=== PATIENT | male | born 1990 | race Caucasian/White ===

== ENCOUNTER 2024-05-05 10:46 | Emergency (ER) | payer SELFPAY ==
[~2024-05-05] VITALS: Ht 167.6 cm; Wt 78.0 kg
[2024-05-05 10:53] VITALS: BP 126/61; PULSE 75; RESP 16; TEMP 98; O2SAT 98
[2024-05-05] MEDS ORDERED: IBUP-2029 MT (11:53)
== END 2024-05-05 12:40 | disposition home or self-care (01) ==
LOC: ER 10:46
DX: S52.592A Other fractures of lower end of left radius, initial encounter for closed fracture (principal); S52.612A Displaced fracture of left ulna styloid process, initial encounter for closed fracture; X58.XXXA Exposure to other specified factors, initial encounter; Y93.67 Activity, basketball; Y92.89 Other specified places as the place of occurrence of the external cause; Y99.8 Other external cause status
CPT/HCPCS: 29125; 73110; 99283; A4565